=== PATIENT | male | born 1980 | race Caucasian/White ===

== ENCOUNTER 2021-02-21 09:15 | Inpatient (IN) | payer OTHER ==
[~2021-02-21] VITALS: Ht 182.9 cm; Wt 82.6 kg
[2021-02-21] MEDS ORDERED: KETOROLAC 30 MG/1 ML IVPush ONE (09:30)
[2021-02-21] MEDS ORDERED: SODIUM CHLORIDE 0.9% 1,000ML IVBOLUS ONE (09:30)
[2021-02-21] MEDS ORDERED: SODIUM CHLORIDE FLUSH 10ML SYR IVF ONE (09:30)
[2021-02-21] MEDS ORDERED: ASPIRIN 81 MG TABLET CHEW PO ONE (09:30)
[2021-02-21] MEDS ORDERED: ACETAMINOPHEN 500 MG TABLET PO ONE (09:30)
[2021-02-21] MEDS ORDERED: KETOROLAC 30 MG/1 ML ONE (09:31)
[2021-02-21] MEDS ORDERED: ACETAMINOPHEN 500 MG TABLET ONE (09:31)
[2021-02-21] MEDS ORDERED: ASPIRIN 81 MG TABLET CHEW ONE (09:31)
--- NOTE | 2021-02-21 09:45 | NUR ---
MEDS ADMIN PER SEP. IVF RUNNING. 2 SETS BLOOD CX COLLECTED BY STOCK PLAN ADMINISTRATOR. PT GOING TO XRAY.
[2021-02-21 09:48] LABS: MEAN CORPUSCULAR HEMOGLOBIN 31.6 pg (27.5-34.5); MEAN CORPUSCULAR HGB CONC 34.3 g/dL (33.2-36.2); MEAN PLATELET VOLUME 9.4 fL (7.4-10.4); PLATELET COUNT 140 x10^3/uL (130-400); RED BLOOD COUNT 4.67 x10^6/uL (4.38-5.82); RED CELL DISTRIBUTION WIDTH 13.6 % (9.4-14.8)
[2021-02-21 10:02] LABS: ALANINE AMINOTRANSFERASE 28 U/L (12-78); ALBUMIN 3.7 g/dL (3.4-5.0); ANION GAP 9 mmol/L (5-15); CHLORIDE 102 mmol/L (98-107); CREATININE 0.88 mg/dL (0.7-1.3)
[2021-02-21 10:07] LABS: ALKALINE PHOSPHATASE 77 U/L (45-117); BILIRUBIN,TOTAL 0.6 mg/dL (0.2-1.0); TOTAL PROTEIN 7.1 g/dL (6.4-8.2); TROPONIN I < 0.015 ng/mL (0.000-0.045)
[2021-02-21 10:14] LABS: BAND#(MANUAL) 1.86 x10^3/uL; BANDS%(MANUAL) 16 % (0-7); LYMPH#(MANUAL) 0.12 x10^3/uL (1-3.4); LYMPHS% (MANUAL) 1 % (22-44); MONOS#(MANUAL) 0.12 x10^3/uL (0.3-2.7); MONOS% (MANUAL) 1 % (2-9); SEG#(MANUAL) 9.51 x10^3/uL (1.8-6.8); SEGS% (MANUAL) 82 % (42-75)
[2021-02-21 10:15] LABS: <PLATELET ESTIMATE> DECREASED; <PLT MORPHOLOGY> NORMAL PLT MORPH; <RBC MORPHOLOGY> NORMAL
--- NOTE | 2021-02-21 10:15 | NUR ---
PT BACK FROM XRAY. PT PROVIDED URINE SAMPLE. UA COLLECTED AND SENT TO LAB. IVF RUNNING. PT CONNECTED TO ALL MONITORING. CALL LIGHT IN REACH. PT SLEEPING ON THIS RN LEAVING ROOM.
[2021-02-21] MEDS ORDERED: POTASSIUM CHLORIDE 20 MEQ PACKET ONE (10:28)
[2021-02-21] MEDS ORDERED: POTASSIUM CHLORIDE 20 MEQ PACKET PO ONE (10:30)
[2021-02-21] MEDS ORDERED: CEFTRIAXONE 1,000 MG in DEXTROSE 5% 50 ML IVPB ONE (10:30)
[2021-02-21 10:38] LABS: MICROSCOPIC INDICATED
--- NOTE | 2021-02-21 10:41 | NUR ---
IV ABX STARTED PER SEP. 2 SETS BLOOD CX COLLECTED PRIOR TO ADMIN. ERMD HAS BEEN AT BEDSIDE TO UPDATE PT ON POC. PT TO BE ADMIT.
--- NOTE | 2021-02-21 11:34 | NUR ---
REPORT GIVEN TO WIL MEDINA. PT RTG TO ROOM [id number]
[2021-02-21] MEDS ORDERED: ONDANSETRON 2MG/ML, 2ML IVPush PRN (12:00)
[2021-02-21] MEDS ORDERED: THIAMINE 100MG TABLET PO ONE (12:00)
[2021-02-21] MEDS ORDERED: TEMAZEPAM 15 MG CAPSULE PO PRN (12:00)
[2021-02-21] MEDS ORDERED: ONDANSETRON ODT 4 MG PO PRN (12:00)
[2021-02-21] MEDS ORDERED: morphine SULFATE 10 MG/ML, 1ML IVPush PRN (12:00)
[2021-02-21] MEDS ORDERED: DOCUSATE 100 MG CAPSULE PO PRN (12:00)
[2021-02-21] MEDS ORDERED: SODIUM CHLORIDE 0.9% 1,000 ML IV SCH (12:00)
[2021-02-21] MEDS ORDERED: GUAIFENESIN/DM 200-20MG, 10ML UDC PO PRN (12:00)
[2021-02-21] MEDS ORDERED: ENALAPRILAT 1.25 MG/ML, 2ML IVPush PRN (12:00)
[2021-02-21] MEDS ORDERED: ACETAMINOPHEN 325 MG TABLET PO PRN (12:00)
--- NOTE | 2021-02-21 12:38 | NUR ---
REPORT GIVEN TO LAKESHA MEDINA. PT RTG TO ROOM [id number].
--- NOTE | 2021-02-21 12:47 | NUR ---
COVID SWAB COLLECTED AND TAKEN TO LAB.
[2021-02-21] MEDS: DEXAMETHASONE 4 MG/ML, 1ML IVPush SCH (14:01)
[2021-02-21] MEDS: ENOXAPARIN 40 MG/0.4 ML SQ SCH (14:01)
[2021-02-21 14:19] VITALS: BP 121/78
[2021-02-21] MEDS: AZITHROMYCIN 500 MG in SODIUM CHLORIDE 0.9% 250 ML IV SCH (14:47)
[2021-02-21 15:00] VITALS: BP 134/82
[2021-02-21 15:46] LABS: TROPONIN I < 0.015 ng/mL (0.000-0.045)
[2021-02-21 18:48] VITALS: BP 120/76
[2021-02-21] MEDS: ASCORBIC ACID 500 MG TABLET PO SCH (21:03)
[2021-02-21] MEDS: FAMOTIDINE 20 MG TABLET PO SCH (21:03)
[2021-02-21] MEDS: HYDROcodone/APAP 5/325 TABLET PO PRN (23:43)
[2021-02-22 00:09] VITALS: BP 109/73
[2021-02-22 05:10] LABS: MEAN CORPUSCULAR HEMOGLOBIN 31.2 pg (27.5-34.5); MEAN CORPUSCULAR HGB CONC 33.9 g/dL (33.2-36.2); MEAN PLATELET VOLUME 10.3 fL (7.4-10.4); PLATELET COUNT 142 x10^3/uL (130-400); RED BLOOD COUNT 4.39 x10^6/uL (4.38-5.82); RED CELL DISTRIBUTION WIDTH 13.5 % (9.4-14.8)
[2021-02-22 05:13] LABS: ANION GAP 6 mmol/L (5-15); CALCIUM 8.5 mg/dL (8.5-10.1); CHLORIDE 109 mmol/L (98-107)
[2021-02-22 05:55] LABS: <PLATELET ESTIMATE> ADEQUATE; <PLT MORPHOLOGY> NORMAL PLT MORPH; <RBC MORPHOLOGY> NORMAL; BAND#(MANUAL) 1.38 x10^3/uL; BANDS%(MANUAL) 9 % (0-7); LYMPH#(MANUAL) 1.99 x10^3/uL (1-3.4); LYMPHS% (MANUAL) 13 % (22-44); MONOS#(MANUAL) 1.07 x10^3/uL (0.3-2.7); MONOS% (MANUAL) 7 % (2-9); SEG#(MANUAL) 10.86 x10^3/uL (1.8-6.8); SEGS% (MANUAL) 71 % (42-75)
[2021-02-22 08:42] VITALS: BP 114/74
[2021-02-22] MEDS: HYDROcodone/APAP 5/325 TABLET PO PRN ×3 (08:42→22:22)
[2021-02-22] MEDS: CHOLECALCIFEROL 1,000 UNIT TABLET PO SCH (08:42)
[2021-02-22] MEDS: DEXAMETHASONE 4 MG/ML, 1ML IVPush SCH (08:42)
[2021-02-22] MEDS: ASCORBIC ACID 500 MG TABLET PO SCH ×2 (08:42→16:54)
[2021-02-22] MEDS: ZINC SULFATE 220 MG CAPSULE PO SCH (08:42)
[2021-02-22] MEDS: FAMOTIDINE 20 MG TABLET PO SCH ×2 (08:42→20:04)
[2021-02-22] MEDS: CEFTRIAXONE 1,000 MG in DEXTROSE 5% 50 ML IVPB SCH (11:52)
[2021-02-22] MEDS: ENOXAPARIN 40 MG/0.4 ML SQ SCH (14:08)
[2021-02-22] MEDS: AZITHROMYCIN 500 MG in SODIUM CHLORIDE 0.9% 250 ML IV SCH (14:08)
[2021-02-22 14:12] VITALS: BP 128/76
[2021-02-22 18:51] VITALS: BP 129/85
[2021-02-23 00:34] VITALS: BP 132/85
[2021-02-23 08:42] VITALS: BP 113/74
[2021-02-23] MEDS: CHOLECALCIFEROL 1,000 UNIT TABLET PO SCH (08:45)
[2021-02-23] MEDS: ASCORBIC ACID 500 MG TABLET PO SCH (08:45)
[2021-02-23] MEDS: ZINC SULFATE 220 MG CAPSULE PO SCH (08:45)
[2021-02-23] MEDS: FAMOTIDINE 20 MG TABLET PO SCH (08:45)
[2021-02-23] MEDS: DEXAMETHASONE 4 MG/ML, 1ML IVPush SCH (08:46)
[2021-02-23] MEDS: HYDROcodone/APAP 5/325 TABLET PO PRN (08:47)
[2021-02-23] MEDS ORDERED: CHOL10003 PO (12:36)
[2021-02-23] MEDS ORDERED: ASCO500T9 PO (12:36)
[2021-02-23] MEDS ORDERED: AZIT250T PO (12:36)
[2021-02-23] MEDS ORDERED: CEFD300C37 PO (12:36)
[2021-02-23] MEDS ORDERED: ZINC220C8 PO (12:36)
[2021-02-23] MEDS: CEFTRIAXONE 1,000 MG in DEXTROSE 5% 50 ML IVPB SCH (12:41)
[2021-02-23] MEDS: ENOXAPARIN 40 MG/0.4 ML SQ SCH (13:29)
[2021-02-23] MEDS: AZITHROMYCIN 500 MG in SODIUM CHLORIDE 0.9% 250 ML IV SCH (13:29)
== END 2021-02-23 14:02 | disposition home or self-care (01) | DRG 871 ==
LOC: SUATTDRO 10:47 → ED 11:25 → EDIP 11:39 → 4WST 13:24
PROVIDERS: ADMIT Hospitalist; ATTEND Family Medicine
DX: A41.9 Sepsis, unspecified organism (principal); J18.9 Pneumonia, unspecified organism; F15.20 Other stimulant dependence, uncomplicated; F17.210 Nicotine dependence, cigarettes, uncomplicated; F11.10 Opioid abuse, uncomplicated; Z20.822 Contact with and (suspected) exposure to COVID-19; Z79.899 Other long term (current) drug therapy
CPT/HCPCS: 36415; 71045; 80048; 80053; 81001; 83605; 84145; 84484; 85025; 85379; 87040; 93005; 96361; 96374; G0378; J0456; J0696; J1100; J1650; J1885; U0005; J7030; J7050; U0003